=== PATIENT | female | born 1990 | race Caucasian/White ===

== ENCOUNTER 2021-05-13 09:41 | Emergency (ER) | payer BC, SELFPAY ==
[2021-05-13 09:41] VITALS: BP 134/92; PULSE 85; RESP 16; TEMP 36.4; O2SAT 99; BMI 42.8
--- NOTE | 2021-05-13 10:10 | CT_ITS ---
STUDY: CT ABDOMEN AND PELVIS WITH CONTRAST REASON FOR EXAM: Female, 30 years old. LUQ pain -- IV PO Contrast RADIATION DOSAGE (If Supplied By Facility): CTDIvol = ( 15.91 ) mGy, DLP = ( 1207.36 ) mGycm TECHNIQUE: Transaxial images were obtained from the dome of the diaphragm to the symphysis pubis without oral contrast. Oral and amp; IV Gastrografin and amp; 100mL Isovue-370 was administered. Sagittal and coronal images were reconstructed. Individualized dose optimization techniques were used for this CT. COMPARISON: None. FINDINGS: The visualized lung bases are unremarkable. The visualized portions of the heart are within normal limits. Normal liver. Normal gallbladder and extrahepatic biliary system. Normal spleen. Normal pancreas. Normal bilateral adrenal glands. Normal right kidney. Normal left kidney. Normal visualized stomach. Normal small intestine. Normal colon. There is non-visualization of the appendix. Normal abdominal aorta. Normal inferior vena cava. Normal retroperitoneum. Normal urinary bladder. 2.5 cm mass in the anterior wall of uterus likely due to uterine fibroid. There are small umbilical hernia containing fat. Narrowing of L4-5 disc space. Posterior degenerative spurs at multiple levels. CT/Abdomen/Pelvis WITH Contrast IMPRESSION: 1. No focal acute inflammatory process. 2. Small uterine fundus. Electronically Signed: Jaden Marquez, at 12:31 EST ,
--- NOTE | 2021-05-13 10:11 | EX.ED.DYSGE1 ---
HPI History of Present Illness Chief Complaint: Other, Pain/Inj Informant: patient Onset/Context/Timing Onset: Days (8 days) Context: Gradual Onset Timing: Waxes and wanes Current Severity: Mild Maximum Severity: Moderate Narrative Narrative: Patient presents with 8 days of epigastric and left upper quadrant abdominal pain. She states 8 days ago she developed epigastric pain and thought she was getting the stomach bug. Over the next several days pain moved to the left upper quadrant. She has no vomiting or diarrhea. No fever or chills. Pain does not worsen with eating. Pain is not necessarily positional. Patient went to the urgent care on Saturday who checked her urine with no signs of blood. [facility] and was sent to the ER for further evaluation. She denies prior abdominal surgery. She does not have cough or shortness of breath. PFSH PFS Medical History no medical history Home Medications lidocaine [Lidoderm] 1 patch TOPICAL DAILY #6 ea 05/13/21 [Rx Last Taken Unknown] naproxen [Naprosyn] 500 mg PO BID PRN #20 tab 05/13/21 [Rx Last Taken Unknown] Allergy/AdvReac Type Severity Reaction Status Date / Time latex Allergy PT UNSURE Verified 05/13/21 10:07 OF REACTION Social History Smoking Status: Never smoker ROS ROS ED Constitutional Constitutional ED: Denies chills or fever(s) Eyes Eyes: Denies change in vision ENT ENT ED: Denies sore throat Cardiovascular Cardiovascular: Reports other Details: Left lower rib pain ; Denies chest pain Respiratory/Chest Respiratory/Chest: Denies cough or dyspnea Gastrointestinal Gastrointestinal: Reports abdominal pain; Denies diarrhea, nausea or vomiting Genitourinary Genitourinary ED: Denies dysuria Musculoskeletal Musculoskeletal: Denies back pain Integumentary Denies rash Neurologic Neurologic: Denies headache(s) or weakness Allergic/Immunologic Allergic/Immunologic ED: Denies urticaria EXAM Physical Exam Const Vital Signs: 05/13/21 09:41 Temperature 97.5 F L Temperature Source Temporal Pulse Rate 85 Respiratory Rate 16 Blood Pressure 134/92 H Blood Pressure Mean 106 Pulse Ox 99 Oxygen Delivery Method Room Air Positive well nourished and well developed General Appearance ED: well developed HEENT Reports moist mucous membranes Eyes PERRL and EOMs intact bilaterally Neck no lymphadenopathy and supple Chest Wall inspection of chest normal Chest Narrative: Mild tenderness to the left lower ribs. No crepitus. Resp normal respiratory effort and clear to auscultation bilaterally Cardio regular rate and regular rhythm GI Palpation: soft and tender LUQ Back/Spine no CVA tenderness Extremity normal to inspection Neuro oriented x3 Sensorium / Orientation: alert Psych mental status grossly normal Skin no rashes or lesions noted MDM MDM MDM Narrative Medical decision making narrative: Patient given Toradol for pain. Lab work, urinalysis, CT scan obtained. Lab Data Attestation: I reviewed the patient's lab results. Labs: Laboratory Results - last 24 hr 05/13/21 05/13/21 05/13/21 10:18 10:18 10:18 WBC 9.0 RBC 5.08 Hgb 15.0 Hct 44.1 MCV 86.8 MCH 29.5 MCHC 34.0 RDW Std Deviation 40.7 RDW Coeff of Farrah 13.0 Plt Count 287 MPV 10.7 Immature Gran % (Auto) 0.300 Neut % (Auto) 68.6 Lymph % (Auto) 20.8 Ritchie % (Auto) 7.8 Eos % (Auto) 1.8 Baso % (Auto) 0.7 Absolute Neuts (auto) 6.2 Absolute Lymphs (auto) 1.88 Nucleated RBC % 0 Sodium 136 Potassium 3.9 Chloride 104 Carbon Dioxide 28.0 Anion Gap 4 L BUN 11 Creatinine 0.71 Estim Creat Clear Calc 100.05 Est GFR (MDRD) Af Amer 123 Est GFR (MDRD) Non-Af 102 BUN/Creatinine Ratio 15.4 Glucose 86 Calcium 8.9 Total Bilirubin 0.40 Direct Bilirubin 0.13 AST 15 ALT 25 Alkaline Phosphatase 76 Total Protein 8.0 Albumin 3.6 Globulin 4.4 H Lipase 52 L Serum , Qual NEGATIVE Urine Color Urine Clarity Urine pH Ur Specific Roper Urine Protein Urine Glucose (UA) Urine Ketones Urine Occult Blood Urine Nitrite Urine Bilirubin Urine Urobilinogen Ur Leukocyte Esterase Urine RBC Urine WBC Ur Squamous Epith Cells Urine Bacteria Urine Mucus 05/13/21 11:50 WBC RBC Hgb Hct MCV MCH MCHC RDW Std Deviation RDW Coeff of Farrah Plt Count MPV Immature Gran % (Auto) Neut % (Auto) Lymph % (Auto) Ritchie % (Auto) Eos % (Auto) Baso % (Auto) Absolute Neuts (auto) Absolute Lymphs (auto) Nucleated RBC % Sodium Potassium Chloride Carbon Dioxide Anion Gap BUN Creatinine Estim Creat Clear Calc Est GFR (MDRD) Af Amer Est GFR (MDRD) Non-Af BUN/Creatinine Ratio Glucose Calcium Total Bilirubin Direct Bilirubin AST ALT Alkaline Phosphatase Total Protein Albumin Globulin Lipase Serum , Qual Urine Color Yellow Urine Clarity Clear Urine pH 7.0 Ur Specific Roper 1.010 Urine Protein Negative Urine Glucose (UA) Normal Urine Ketones Negative Urine Occult Blood Negative Urine Nitrite Negative Urine Bilirubin Negative Urine Urobilinogen Normal Ur Leukocyte Esterase Negative Urine RBC 0 SEEN Urine WBC 0 SEEN Ur Squamous Epith Cells 0-5 SEEN Urine Bacteria 0 SEEN Urine Mucus 0 SEEN Radiography Diagnostic Testing: Clinical Impression(s) from Imaging Studies Abdomen/Pelvis CT 05/13/21 10:10 IMPRESSION: 1. No focal acute inflammatory process. 2. Small uterine fundus. Electronically Signed: Jaden Marquez, at 12:31 EST , Treatment and Re-Evaluation Comments:: On repeat evaluation patient resting comfortably. Test results reviewed with her. Lab work is unremarkable including LFTs and lipase. Urinalysis shows no sign of infection or blood. CT scan shows no acute findings. With patient having reproducible pain and knowing that the internal organs all appear normal with normal lab work, we will treat her with anti-inflammatories and Lidoderm patches topically. Return instructions provided. Discharge Plan Triage Chief Complaint: Other, Pain/Inj ED Provider: Tianna Rivas Dx/Rx/DC Orders Clinical Impression: Abdominal wall pain Instructions: ED Abdominal Pain Unkn Cause Fem Prescriptions: New naproxen [Naprosyn] 500 mg tablet 500 mg PO BID PRN (Reason: pain) Qty: 20 RF: 0 lidocaine [Lidoderm] 5 % adhesive patch,medicated 1 patch topical DAILY Qty: 6 RF: 0 Primary Care Provider: Care Physician,No Primary Referrals: Kirstie Arango MD [STAFF PHYSICIAN] - 10-14 Days if not better Care Physician,No Primary [Primary Care Provider] - Disposition Disposition: Home, Self Care
[2021-05-13] MEDS: Ketorolac 30 MG/ML Syringe IV (10:19)
[2021-05-13 10:30] LABS: Absolute Lymphocyte Count 1.88 X10^3/uL (0.83-4.51); Absolute Neutrophil Count 6.2 X10^3/uL (2.0-7.7); Basophil# 0.06 X10^3/uL; Basophil% 0.7 % (0-1); Eosinophil# 0.16 X10^3/uL; Eosinophils% 1.8 % (0-5); Hematocrit 44.1 % (37-47); Lymphocyte # 1.88 X10^3/ul (0.83-4.51); Lymphocyte % 20.8 % (19-41); Mean Corpuscular Hgb 29.5 pg (27.0-32.0); Mean Corpuscular Volume 86.8 fL (81-99); Mean Platelet Vol. 10.7 fl (6.2-12.0); Monocyte% 7.8 % (0-10); NRBC Flagged by Analyzer 0 % (0-5); Neutrophil # 6.19 X10^3/uL (2.7-7.7); Neutrophil % 68.6 % (47-70); Platelet Count 287 K/mm3 (150-450); RBC Distribution Width SD 40.7 fl (35.1-43.9); Red Blood Count 5.08 M/mm3 (4.2-5.4)
[2021-05-13 10:42] LABS: Internal QC Validated? YES +Cl - CLEAR BKGD; Pregnancy, Serum, hCG Quali. NEGATIVE Negative
[2021-05-13 10:46] LABS: AST(SGOT) 15 U/L (15-37); Alanine Aminotransfer ALT/SGPT 25 U/L (13-56); Albumin, Serum 3.6 g/dL (3.2-5.0); Alkaline Phosphatase 76 U/L (45-117); Anion Gap 4 (5-15); BUN 11 mg/dL (7-18); BUN/Creat Ratio 15.4 RATIO (10-20); Bilirubin, Direct 0.13 mg/dL (0.00-0.30); Calcium,Total 8.9 mg/dL (8.5-10.1); Chloride 104 mmol/L (98-107); Creatinine, Serum 0.71 mg/dL (0.55-1.02); EST Glomerular Filtration Rate 102 mL/min (>60); Est Glom Filt Rate - Afr Amer 123 mL/min (>60); Estimated Creatinine Clearance 100.05 ml/min; Globulin 4.4 g/dL (2.2-4.2); Glucose 86 mg/dL (74-106); Lipase 52 U/L (73-393); Potassium 3.9 mmol/L (3.5-5.1); Sodium Level 136 mmol/L (136-145)
[2021-05-13 11:53] LABS: Bacteria 0 SEEN /hpf (None Seen); Mucous, Urine 0 SEEN /hpf (<or=2+); Red Blood Cells-Urine 0 SEEN /hpf (0-5); White Blood Cells 0 SEEN /hpf (0-5)
[2021-05-13 12:02] LABS: Color, Urine Yellow (Yellow); Glucose, Dipstick Normal (Normal); Ketone-Dipstick Negative (Negative); Leukocyte Esterase-Dipstick Negative /ul (Negative); Nitrite-Dipstick Negative (Negative); Occult Blood-Urine Negative /ul (Negative); Protein-Dipstick Negative (Negative); Urine Bilirubin Dipstick Negative (Negative); Urine Clarity Clear (Clear); Urine Urobilinogen Normal (Normal)
[2021-05-13 12:24] LABS: Squamous Epithelial Cells - UA 0-5 SEEN /hpf (5-10)
[2021-05-13 13:24] VITALS: BP 138/74; PULSE 82; RESP 15; O2SAT 97
== END 2021-05-13 13:24 | disposition home or self-care (01) ==
PROVIDERS: Emergency Provider Emergency Medicine; Visit Provider Emergency Medicine
DX: R10.13 Epigastric pain (principal); R10.12 Left upper quadrant pain
CPT/HCPCS: 74177; 80048; 80076; 81001; 83690; 84703; 85025; 99283; Q9967; A4216

== ENCOUNTER 2021-05-13 10:07 | Outpatient (CLI) | payer BC, SELFPAY ==
[2021-05-15 10:21] LABS: Color, Urine Yellow (Yellow); Glucose, Dipstick Normal (Normal); Ketone-Dipstick Negative (Negative); Leukocyte Esterase-Dipstick Negative /ul (Negative); Nitrite-Dipstick Negative (Negative); Occult Blood-Urine 10 /ul (Negative); Protein-Dipstick Negative (Negative); Specific Gravity, Urine 1.015 (1.002-1.030); Urine Bilirubin Dipstick Negative (Negative); Urine Clarity Clear (Clear); Urine Urobilinogen Normal (Normal)
[2021-05-15 10:36] LABS: Mucous, Urine 0 SEEN /hpf (<or=2+); Red Blood Cells-Urine 0 SEEN /hpf (0-5); White Blood Cells 0-5 SEEN /hpf (0-5)
[2021-05-15 10:37] LABS: Bacteria 1+ /hpf (None Seen); Squamous Epithelial Cells - UA 5-10 SEEN /hpf (5-10)
== END 2021-05-13 23:59 | disposition home or self-care (01) ==
LOC: LABSPEC 05-15 10:08
PROVIDERS: Referring Provider Physician Assistant; Visit Provider Physician Assistant
DX: R10.9 Unspecified abdominal pain (principal)
CPT/HCPCS: 81001; 87086; 87088

== ENCOUNTER 2021-06-29 18:51 | Emergency (ER) | payer BC, SELFPAY ==
[2021-06-29 18:52] VITALS: BP 133/106; PULSE 86; RESP 15; TEMP 36.3; O2SAT 98; BMI 42.0
--- NOTE | 2021-06-29 19:07 | EDS_ITS ---
HPI History of Present Illness Chief Complaint: Trauma Detail of Chief Complaint: Horse lost balance falling onto patient Informant: patient Onset/Context/Timing Onset: Hours (1 hour ago) Mechanism/Context: Blunt Injury and Fall Location of pain/injuries: Right Knee, Left elbow, Left knee and Left ankle Quality of Pain: Dull and Aching Location: Documented Current Severity: Mild Maximum Severity: Moderate Worsened by: Movement Relieved by: Less if patient remains still Associated Symptoms Associated Symptoms: Negative for Parasthesias, Weakness, Loss of function, Inability to ambulate, Loss of consciousness and Amnesia Length of loss of consciousness: There is no history of head trauma Narrative Narrative: Patient is a 30-year-old woman who was riding her horse without a helmet. The horse lost its balance. Horse fell onto her. She states her left lower extremity took the brunt of the trauma. She complains of pain left elbow, right knee and left knee. She believes she has road rash. Her last tetanus shot was 2013. She denies visual, ocular auditory symptoms. She denies neck pain. She denies chest pain or shortness of breath. She denies nausea or vomiting. She denies upper or lower back pain. Tetanus Immunization: 5-10 years Prior similar symptoms: No Recent Illness/Hospitalization: No PFSH PFSH Home Medications lidocaine [Lidoderm] 1 patch TOPICAL DAILY #6 ea 05/13/21 [Rx Last Taken Unknown] naproxen [Naprosyn] 500 mg PO BID PRN #20 tab 05/13/21 [Rx Last Taken Unknown] hydrocodone-acetaminophen 1 tab PO Q6H PRN PRN 3 Days #10 tablet 06/29/21 [Rx Last Taken Unknown] naproxen 500 mg PO BID #14 tab 06/29/21 [Rx Last Taken Unknown] Allergy/AdvReac Type Severity Reaction Status Date / Time latex Allergy PT UNSURE Verified 06/29/21 18:55 OF REACTION Social History (Updated 06/29/21 @ 19:[address] Juan Antonio Sanches MD) household members: spouse Smoking Status: Never smoker substance use type: does not use ROS ROS ED Constitutional Constitutional ED: Denies chills, fever(s), subjective or sweats Eyes Eyes: Denies blurry vision, change in vision or other ENT ENT ED: Denies ear pain or rhinorrhea Cardiovascular Cardiovascular: Denies chest pain, palpitations or racing heartbeat Respiratory/Chest Respiratory/Chest: Denies cough, dyspnea or dyspnea on exertion Gastrointestinal Gastrointestinal: Denies abdominal pain, nausea or vomiting Genitourinary Genitourinary ED: Denies dysuria, hematuria or urinary frequency Musculoskeletal Musculoskeletal: Reports other Details: Left elbow and right and left knee ; Denies arthralgias, back pain, myalgias or neck pain Integumentary Reports Abrasions Neurologic Neurologic: Denies headache(s), paresthesias or weakness Endocrine Endocrinology: Denies polydipsia, polyphagia or polyuria Hematologic/Lymphatic Hematologic/Lymphatic: Denies easy bleeding or easy bruising EXAM Physical Exam Const Vital Signs: 06/29/21 18:52 06/29/21 19:07 Temperature 97.4 F L Temperature Source Temporal Pulse Rate 86 Respiratory Rate 15 Respiratory Effort Normal Respiratory Depth Normal Respiratory Pattern Normal Blood Pressure 133/106 H Blood Pressure Mean 115 Pulse Ox 98 Oxygen Delivery Method Room Air Room Air Positive well nourished, well developed and obese General Appearance ED: well developed and NAD Nutritional Appearance: obese HEENT Reports TM's clear HEENT Narrative: There is no septal deviation hematoma. There is no hemotympanum. There is no clinical signs of basilar skull fracture. There is no evidence of head trauma. atraumatic; Negative for tenderness Nose: Negative for septum abnormal Tympanic Membrane ED: Yes TM's clear Eyes PERRL and EOMs intact bilaterally General Eye ED: Yes other Other Details: There is no subconjunctival hemorrhage noted. Neck full ROM General: Negative for tenderness Chest Wall palpation of chest normal Chest Narrative: There is no pain ovation of the clavicle, AC joint or proximal right or left humerus. Resp normal respiratory effort and clear to auscultation bilaterally Cardio regular rhythm, S1 normal heart sound, S2 normal heart sound and no murmurs Rate: regular rate GI normal to inspection, nondistended, normoactive bowel sounds, non-tender and non-distended GI Narrative: There is no pain no the pelvis. Auscultation: normoactive bowel sounds Palpation: soft Back/Spine normal to inspection and no thoracic nor lumbar tenderness General Back: Negative for CVA tenderness Extremity full ROM; Negative for normal to inspection Extremity Narrative: Patient has significant ecchymosis with abrasion over the right knee. There is joint line tenderness. Patellas not blottable. There is no pain the patient over the patella. There is no effusion. Patient has pain with modified Manan test however there is no click. She has significant discomfort in the popliteal fossa. There is no laxity with varus valgus stress testing. There is abrasion anterior left ankle. There is no pain the patient of the lateral medial malleolus. Is no pain no patient over the calcaneus, tarsal bones, metatarsal bones or phalanges of the left foot. DP and PT pulse are palpable. Patient has abrasion of the left elbow. There is no pain the patient over the lateral medial epicondyle. Is no pain the patient with olecranon process. There is no pain the patient over the radial head with supination pronation. There is no pain the patient of the proximal humerus, distal radius ulna, carpal bones, metacarpal bones or phalanges. Axillary, median and radial nerve function intact. The right knee is contused with bruises. There is no pain placed over the patella. The patellas not blottable. There is no effusion. There is no joint line tenderness. Negative modified Manan's test and Gabriela's test. There is no pain to palpation the popliteal fossa. Is no evidence of trauma to the hip or ankle. There is no pain the patient of the proximal humerus, right elbow, wrist or hand. Axillary, median, radial and ulnar function intact. General Extremety ED: Yes tenderness; Negative for deformity or edema General Extremity: Negative for deformity or edema Neuro oriented x3, CN's II-XII intact bilaterally, moves all extremities and no sensory deficits noted Garretson Coma Scale: document GCS findings Spontaneous Obeys Commands Oriented 15 Sensorium / Orientation: alert Motor Exam: strength 5/5 throughout Plantar Reflex: Downgoing: bilateral (There is no clonus.) Psych mental status grossly normal and thought process normal Skin skin turgor normal and no jaundice Skin Narrative: Previously described under the extremity portion of the docu ment. Trauma: abrasion MDM MDM MDM Narrative Medical decision making narrative: X-ray of the left knee was obtained because of joint line tenderness and pain with modified Manan's test. Patient was medicated with oral medication. Tetanus is up-to-date. 4 view x-ray of the left knee was independently reviewed and interpreted by me as negative for fracture, subluxation or dislocation. There is no effusion. Radiography Diagnostic Testing: Clinical Impression(s) from Imaging Studies Knee X-Ray 06/29/21 19:15 IMPRESSION: Intact knee. Electronically Signed: Mark Stanton MD at 20:05 EDT , Discharge Plan Triage Chief Complaint: Trauma ED Provider: Juan Antonio Sanches Dx/Rx/DC Orders Clinical Impression: Animal-rider injured by fall from or being thrown from horse in noncollision accident, initial encounter, Contusion of left elbow, initial encounter, Abrasion of elbow, left, Contusion of right knee, initial encounter, Abrasion of knee, right, Contusion of left knee, initial encounter, Abrasion, left knee, initial encounter Instructions: ED Soft Tissue Contusion Prescriptions: New hydrocodone-acetaminophen [hydrocodone-acetaminophen] 1 TABLET tablet 1 tab PO Q6H PRN PRN (Reason: Pain) 3 Days Qty: 10 RF: 0 naproxen 500 MG tablet 500 mg PO BID Qty: 14 RF: 0 No Action naproxen [Naprosyn] 500 mg tablet 500 mg PO BID PRN (Reason: pain) Qty: 20 RF: 0 lidocaine [Lidoderm] 5 % adhesive patch,medicated 1 patch topical DAILY Qty: 6 RF: 0 Primary Care Provider: Care Physician,No Primary Referrals: Dionisio Lynne MD [STAFF PHYSICIAN] - 1 Week if not improving Care Physician,No Primary [Primary Care Provider] - Activity Restrictions/Additional Instructions: 1. You will feel worse over the next 24 to 48 hours new line 2. Apply ice to areas of discomfort 6-8 times a day 3. Apply bacitracin ointment 2-3 times a day for the next 3 to 5 days 4. You may hurt up to a week Disposition Disposition: Home, Self Care
--- NOTE | 2021-06-29 19:15 | RAD_ITS ---
STUDY: X-RAY - LEFT KNEE REASON FOR EXAM: Female, 30 years old. Injury/Pain TECHNIQUE: 4 view(s) of the knee. COMPARISON: None. FINDINGS: Normal visualized distal femur. Normal visualized proximal tibia and fibula. Normal proximal tibiofibular articulation. Normal medial femorotibial compartment. Normal lateral femorotibial compartment. Normal patellofemoral articulation. The soft tissue structures are unremarkable. RAD/Knee 4 or More Views IMPRESSION: Intact knee. Electronically Signed: Mark Stanton MD at 20:05 EDT ,
[2021-06-29] MEDS: Naproxen 500 MG Tablet PO (19:39)
== END 2021-06-29 20:51 | disposition home or self-care (01) ==
PROVIDERS: Emergency Provider Emergency Medicine; Visit Provider Emergency Medicine
DX: S50.02XA Contusion of left elbow, initial encounter (principal); Z68.41 Body mass index [BMI] 40.0-44.9, adult; S50.312A Abrasion of left elbow, initial encounter; S80.01XA Contusion of right knee, initial encounter; S80.211A Abrasion, right knee, initial encounter; S80.02XA Contusion of left knee, initial encounter; S80.212A Abrasion, left knee, initial encounter; V80.010A Animal-rider injured by fall from or being thrown from horse in noncollision accident, initial encounter; Y93.52 Activity, horseback riding; Y99.8 Other external cause status; E66.9 Obesity, unspecified
CPT/HCPCS: 73564; 99283; A4216